=== PATIENT | male | born 1970 | race African-American/Black ===

== ENCOUNTER 2023-11-04 14:24 | Emergency (ER) | payer OTHER ==
[~2023-11-04] VITALS: Ht 175.3 cm; Wt 77.1 kg
[2023-11-04 14:53] VITALS: O2SAT 100
[2023-11-04 15:40] LABS: EOSINOPHILS % 1.4 % (0.0-5.0); HEMATOCRIT. 51.4 % (42.0-52.0); HEMOGLOBIN. 17.4 g/dL (14.0-18.0); LYMPHOCYTES % 53.1 % (20.0-50.0); MEAN CORPUSCULAR HEMOGLOBIN 32.4 pg (28.0-32.0); MEAN CORPUSCULAR HGB CONC 33.8 g/dL (31.0-37.0); MEAN CORPUSCULAR VOLUME 95.7 fL (80.0-94.0); MONOCYTES % 8.1 % (2.0-8.0); NEUTROPHILS % 36.4 % (40.0-76.0); PLATELET 160 x1000/uL (130-400); RED BLOOD CELL COUNT 5.37 mill/uL (4.7-6.1); RED CELL DISTRIBUTION WIDTH 14.5 % (11.6-14.6); WHITE BLOOD COUNT 4.1 x1000/uL (4.5-11.0)
[2023-11-04 15:56] LABS: POTASSIUM 2.9 mEq/L (3.5-5.1)
[2023-11-04 15:57] LABS: CALCIUM 9.6 mg/dL (8.7-10.4)
[2023-11-04 16:02] LABS: CREATININE 1.6 mg/dL (0.6-1.3)
[2023-11-04] MEDS: LIDOCAINE HCL 1% 20ML VIAL INFIL ONE (16:47)
[2023-11-04] MEDS: TETANUS, DIPHTHERIA, PERTUSSIS VAC/PF 0.5ML (>10YR OLD) IM ONE (16:48)
[2023-11-04] MEDS: POVIDONE-IODINE 10% TOPICAL SOLN 240ML TOP ONE (16:49)
[2023-11-04 17:18] LABS: ETHANOL BLOOD 255 mg/dL (<10)
[2023-11-04 17:19] LABS: ACETAMINOPHEN < 2 ug/mL (10-30); ALANINE AMINOTRANSFERASE 23 IU/L (10-49); ASPARTATE AMINOTRANSFERASE 48 IU/L (<34)
[2023-11-04 17:20] LABS: ALBUMIN 4.7 g/dL (3.2-4.8); BILIRUBIN DIRECT 0.2 mg/dL (<=3.0); BILIRUBIN TOTAL 0.5 mg/dL (0.1-1.0); PROTEIN TOTAL 8.1 g/dL (6.0-8.3)
[2023-11-04 19:30] LABS: CLARITY URINE CLEAR (CLEAR); COLOR URINE DARK YELLOW (YELLOW); GLUCOSE URINE NEGATIVE (NEGATIVE); KETONES URINE TRACE (NEGATIVE); LEUKOCYTE ESTERASE URINE NEGATIVE (NEGATIVE); NITRITE URINE NEGATIVE (NEGATIVE); OCCULT BLOOD URINE NEGATIVE (NEGATIVE); PH URINE 5.5 (4.5-8.0); PROTEIN URINE 1+ (NEGATIVE)
[2023-11-04 19:38] LABS: *AMPHETAMINES SCREEN URINE NEGATIVE (NEGATIVE); *BARBITURATES SCREEN URINE NEGATIVE (NEGATIVE); *BENZODIAZEPINES SCREEN URINE NEGATIVE (NEGATIVE); *COCAINE SCREEN URINE PRESUMPTIVE POSITIVE (NEGATIVE); METHADONE URINE SCREEN NEGATIVE (NEGATIVE); OPIATES URINE SCREEN NEGATIVE (NEGATIVE)
[2023-11-04 19:39] LABS: CANNABINOID URINE SCREEN PRESUMPTIVE POSITIVE (NEGATIVE); ECSTASY MDMA SCREEN URINE NEGATIVE (NEGATIVE); PHENCYCLIDINE URINE SCREEN PRESUMTIVE POSITIVE (NEGATIVE)
[2023-11-04 19:49] LABS: BACTERIA URINE NONE SEEN; RBC URINE 0-2 /hpf (0-2); SQUAMOUS EPITHELIAL CELL URINE 2+ /lpf (RARE/1+); WBC URINE 0-2 /hpf (0-2)
[2023-11-04] MEDS: SILVER NITRATE APPLICATOR STICK TOP ONE (23:41)
[2023-11-05] MEDS: MELATONIN 3MG TABLET PO SCH (00:55)
[2023-11-05] MEDS: MORPHINE SULFATE 4 MG/ML INJ (FOR IV/IM USE) IM NR (00:56)
[2023-11-05] MEDS: MORPHINE SULFATE 4 MG/ML INJ (FOR IV/IM USE) IM ONE (00:56)
[2023-11-05] MEDS ORDERED: POTASSIUM CHLORIDE 20MEQ TABLET SR PO NR (06:00)
[2023-11-05] MEDS: POTASSIUM CHLORIDE 20MEQ TABLET SR PO NR (11:34)
[2023-11-05] MEDS: ACETAMINOPHEN 325MG TABLET PO ONE (11:34)
[2023-11-05 15:41] LABS: CHLORIDE 99 mEq/L (98-107); POTASSIUM 2.9 mEq/L (3.5-5.1); SODIUM 138 mEq/L (136-145)
[2023-11-05 15:42] LABS: CARBON DIOXIDE 31 mEq/L (21-32)
[2023-11-05 15:47] LABS: CREATININE 0.9 mg/dL (0.6-1.3); GLUCOSE 123 mg/dL (70-105); UREA NITROGEN BLOOD 15 mg/dL (9-23)
[2023-11-05 15:49] LABS: ALANINE AMINOTRANSFERASE 20 IU/L (10-49); ALBUMIN 4.2 g/dL (3.2-4.8); ASPARTATE AMINOTRANSFERASE 36 IU/L (<34); BILIRUBIN TOTAL 0.8 mg/dL (0.1-1.0); PROTEIN TOTAL 7.4 g/dL (6.0-8.3)
[2023-11-05 15:53] LABS: ETHANOL BLOOD < 10 mg/dL (<10)
[2023-11-05] MEDS: FLUOXETINE HCL 10 MG CAPSULE PO SCH (17:30)
[2023-11-06] MEDS: POTASSIUM CHLORIDE 20MEQ TABLET SR PO ONE (06:00)
[2023-11-06 09:48] VITALS: BP 127/69; PULSE 72; RESP 17; TEMP 97.9
== END 2023-11-06 09:50 | disposition home or self-care (01) ==
LOC: ER 14:24
DX: L03.032 Cellulitis of left toe (principal); R45.851 Suicidal ideations; E11.9 Type 2 diabetes mellitus without complications; I10 Essential (primary) hypertension; Z90.89 Acquired absence of other organs; Z98.890 Other specified postprocedural states; Z20.822 Contact with and (suspected) exposure to COVID-19
CPT/HCPCS: 80076; 80053; 80305; 80048; 81003; 80307; 80329; 80320; 85025; 36415; 73630; 90715; 11730; 90471; 99285; 87426; 96372; J3490; J2270; G0480